=== PATIENT | male | born 1970 | race Two or more races ===

== ENCOUNTER 2021-08-16 12:56 | Emergency (ER) | payer OTHER ==
[~2021-08-16] VITALS: Ht 170.2 cm; Wt 59.9 kg
--- NOTE | 2021-08-16 12:56 | NUR ---
PT KENDRA PA [facility] SUPRAPUBIC CATHETER REPLACEMENT. PT IS AAOX3, NOT IN RESPIRATORY DISTRESS, VS STABLE, KEPT RESTED AND COMFORTABLE. WILL CONTINUE TO MONITOR.
--- NOTE | 2021-08-16 13:30 | NUR ---
PT SEEN AND EXAMINED BY .
--- NOTE | 2021-08-16 15:30 | NUR ---
SUPRAPUBIC CATH REPLACED BY .
--- NOTE | 2021-08-16 15:35 | NUR ---
CALLED [facility] AND SET UP S TRNASPORT BACK TO FACILITY ETA 1630
[2021-08-16 15:51] LABS: BASOPHILS % (AUTO) 0.4 % (0.0-2.0); HEMATOCRIT 41 % (39-51); HEMOGLOBIN 13.6 g/dL (13.5-17.5); LYMPHOCYTES # (AUTO) 1.7 K/uL (0.8-4.8); LYMPHOCYTES % (AUTO) 18.2 % (20.0-44.0); MEAN CORPUSCULAR HGB CONC 34 g/dl (31.0-36.0); MEAN CORPUSCULAR VOLUME 91 fL (80-96); MONOCYTES # (AUTO) 0.8 K/uL (0.1-1.30); MONOCYTES % (AUTO) 8.9 % (2.0-12.0); NEUTROPHILS # (AUTO) 6.6 K/uL (1.8-8.9); NEUTROPHILS % (AUTO) 72.5 % (43.0-81.0); PLATELET COUNT (AUTO) 161 K/uL (150-450); RED BLOOD CELL COUNT(AUTO) 4.49 MIL/uL (4.5-6.0); WHITE BLOOD COUNT (AUTO) 9.1 K/uL (4.3-11.0)
[2021-08-16 16:14] LABS: CREATININE 0.7 mg/dL (0.6-1.3); POTASSIUM 4.7 mmol/L (3.5-5.1)
[2021-08-16 17:16] LABS: BILIRUBIN,URINE NEGATIVE (NEGATIVE); COLOR,URINE YELLOW (YELLOW); LEUKOCYTE ESTERASE ,URINE MODERATE (NEGATIVE); NITRITE, URINE NEGATIVE (NEGATIVE); PROTEIN,URINE 100 mg/dl (NEGATIVE); UGLUCOSE 250 MG/DL mg/dL (NEGATIVE)
[2021-08-16 17:18] LABS: PH,URINE >8.5 (5.0-8.0)
[2021-08-16 17:32] LABS: BACTERIA,URINE 4+ /HPF (None Seen); MUCUS,URINE Moderate /LPF (None Seen); RBC,URINE 21-50 /HPF (0-2); SQUAMOUS EPITHELIAL CELL,UR 0-2 /HPF (None Seen); WBC,URINE 21-50 /HPF (0-3)
[2021-08-16] MEDS ORDERED: CEPH500C2 PO (17:56)
[2021-08-16] MEDS ORDERED: CEPHALEXIN MONOHYDRATE 500 MG CAPSULE PO ONE ×2 (18:00→18:01)
--- NOTE | 2021-08-16 18:15 | NUR ---
CALLED [facility] AND SET UP BLS TRANSPORT ETA 1929
[2021-08-16 19:00] VITALS: BP 116/56
--- NOTE | 2021-08-16 19:00 | NUR ---
Patient discharged back to care facility in stable condition. Written and verbal after care instructions given. Patient verbalizes understanding of instruction.
== END 2021-08-16 19:01 | disposition home or self-care (01) ==
LOC: ER 13:02
DX: T83.098A Other mechanical complication of other urinary catheter, initial encounter (principal); R82.81 Pyuria; I10 Essential (primary) hypertension; K21.9 Gastro-esophageal reflux disease without esophagitis; E11.9 Type 2 diabetes mellitus without complications; E78.5 Hyperlipidemia, unspecified; Z86.2 Personal history of diseases of the blood and blood-forming organs and certain disorders involving the immune mechanism; Z88.8 Allergy status to other drugs, medicaments and biological substances
CPT/HCPCS: 36415; 71045-TC; 80048-TC; 81001; 85025-TC; 87086-TC